=== PATIENT | male | born 1955 | race Caucasian/White ===

== ENCOUNTER 2017-02-13 05:27 | Inpatient (IN) | payer BC ==
[2017-02-06 12:27] LABS: BASOPHILS 0.5 %; BASOPHILS ABSOLUTE 0.02 10/3/uL (0.0-0.16); EOSINOPHILS 5.4 %; EOSINOPHILS ABSOLUTE 0.21 10/3/uL (0.0-0.53); HEMATOCRIT 43.9 % (40.0-51.0); HEMOGLOBIN 15.9 g/dL (13.6-17.8); LYMPHOCYTES 44.8 %; LYMPHOCYTES ABSOLUTE 1.73 10/3/uL (0.67-4.30); MEAN CORPUS HGB CONC 36.2 g/dL (32.0-36.0); MEAN CORPUSCULAR HEMOGLOB 33.3 pg (26.0-34.0); MEAN CORPUSCULAR VOLUME 91.8 fL (80-100); MEAN PLATELET VOLUME 9.1 fL (9.2-13.0); MONOCYTES 9.6 %; MONOCYTES ABSOLUTE 0.37 10/3/uL (0.21-1.20); NEUTROPHILS 39.7 %; NEUTROPHILS ABSOLUTE 1.53 10/3/uL (2.02-8.40); PLATELET COUNT 164 10/3/uL (150-400); RBC DISTRIBUTION WIDTH 13.7 % (12.0-16.0); RED CELL COUNT 4.78 10/6/uL (4.7-6.1); WHITE BLOOD CELLS 3.9 10/3/uL (4.5-10.5)
[2017-02-06 12:29] LABS: MANUAL DIFF NO %
[2017-02-06 12:32] LABS: PROTIME (NOT ORD) 12.9 SEC (12.0-14.5)
[2017-02-06 12:42] LABS: % IRON SAT 33 % (20-50); ALBUMIN 4.2 G/DL (3.5-5.0); BUN (BLOOD UREA NITROGEN) 11 MG/DL (6-23); CALCIUM, SERUM 9.5 MG/DL (8.5-10.4); CHLORIDE, SERUM 105 MMOL/L (96-112); CO2 (CARBON DIOXIDE) 27 MMOL/L (24-34); CREATININE 0.98 MG/DL (0.70-1.30); GFR AFRICAN AMERICAN 97 ML/MIN (>=60); GFR NON AFRICAN AMERICAN 84 ML/MIN (>=60); GLUCOSE, SERUM 96 MG/DL (60-99); IRON BINDING CAPACITY 357 MCG/DL (250-450); IRON, SERUM 118 MCG/DL (35-150); POTASSIUM, SERUM 4.6 MMOL/L (3.5-5.3); SGOT(AST) 32 U/L (5-40); SGPT(ALT) 64 U/L (5-65); SODIUM, SERUM 139 MMOL/L (135-148); TOTAL BILIRUBIN 0.8 MG/DL (0-1.2); TOTAL PROTEIN 7.6 G/DL (6.0-8.5)
[2017-02-06 12:44] LABS: A/G RATIO 1.2 (0.7-1.9); ALKALINE PHOSPHATASE 73 U/L (45-117); GLOBULIN 3.4 G/DL (2.5-4.1)
[2017-02-06 13:30] LABS: ASCORBIC ACID (UR NOT ORDER) NEG (NEG); BILIRUBIN, URINE NEGATIVE (NEG); KETONE, URINE NEGATIVE (NEG); LEUKOCYTE ESTERASE(NOT OR NEG (NEG); WBC (NOT ORDERED) (RFLEX) 2 (0-5)
--- NOTE | ~2017-02-13 | CN ---
Consultation Report [facility] [address] [place]. [address] NAME: CECILIA POZO : 59 STATUS : ADM IN [facility]#: [id number] AGE: 61 ADM/REG DATE : 02/13/17 MR#: [id number] REPORT SERV DATE: 02/14/17 DICTATED BY: JEZ CALLAWAY DATE: 02/14/17 REPORT STATUS : Draft TRANSCRIBED BY: MODL DATE: 02/14/17 CONSULTATION DATE OF CONSULTATION: 02/14/2017 REASON FOR CONSULT: Postoperative hyperglycemia. HISTORY OF PRESENT ILLNESS: The patient is a very pleasant 61-year-old male, who is status post coronary artery bypass grafting and aortic root replacement per cardiothoracic surgeon, Dr. Hair. He developed postoperative hyperglycemia and I am consulted for postoperative hyperglycemia. The patient denies any shortness of breath. He is complaining of postsurgical chest pain. He does not have any history of diabetes. PAST MEDICAL HISTORY: Known for history of hyperlipidemia, history of calcific coronary artery disease, enlargement of the aortic root, hypertension, cataract surgery, degenerative disk disease, left renal calculus, prostate cancer status post resection, enlarged ascending aorta, ascending aortic aneurysm of size 4.7 x 4.8. PAST SURGICAL HISTORY: Includes radical prostatectomy, previous hemorrhoidectomy, appendectomy as a child. Also had a cataract excision of right eye one week ago. ALLERGIES: INCLUDE SULFA, STATINS. HOME MEDICATIONS: Include aspirin 81 mg a day, loratadine 10 mg a day, metoprolol 50 p.o. b.i.d., and pravastatin 40 mg a day. FAMILY HISTORY: Significant for brother with hyperlipidemia; brother with hypertension; father with hypertension, hyperlipidemia, and myocardial infarction; mother with hypertension and diabetes. SOCIAL HISTORY: He never smoked. He drinks occasionally one glass of wine. No recreational drug use. REVIEW OF SYSTEMS: 14-point review of systems done and negative. PHYSICAL EXAMINATION: GENERAL: Well-nourished, well-developed male, not in acute distress, resting quietly. VITAL SIGNS: Blood pressure 140/52, heart rate 97, respirations 16, and oxygen saturation 96% on room air. HEENT: Head is atraumatic, normocephalic. Conjunctivae clear. Pupils are equal and reactive to light and accommodation. Extraocular muscles are intact. NECK: Supple. Trachea is midline. No supraclavicular or cervical lymphadenopathy. LUNGS: Diminished breath sounds bilaterally. Decreased respiratory effort. Consultation Report [facility]. [address] NAME: CECILIA POZO : 59 STATUS : ADM IN PAT#: [id number] AGE: 61 ADM/REG DATE : 02/13/17 MR#: [id number] REPORT SERV DATE: 02/14/17 DICTATED BY: JEZ CALLAWAY DATE: 02/14/17 REPORT STATUS : Draft TRANSCRIBED BY: MODL DATE: 02/14/17 CARDIOVASCULAR SYSTEM: Regular rate and rhythm. Point of maximal impulse not displaced. ABDOMEN: Soft, nontender, nondistended. Positive normoactive bowel sounds. EXTREMITIES: No clubbing, cyanosis, or edema. SKIN: Normal color and turgor. LABORATORY RESULTS: Blood sugar 117 and 116. He is currently on 4-5 units of regular insulin drip. Sodium 146, potassium 4.5, chloride 113, carbon dioxide 21, BUN 19, creatinine 1.08, blood sugar 119, magnesium 2.2. Hemoglobin A1c 5. White count 7.6, hemoglobin 8.9, hematocrit 24.4, platelet count 102. ASSESSMENT AND PLAN: 1. This is a very pleasant 61-year-old male with postoperative hyperglycemia. The patient does not have any evidence of diabetes. He was given steroids postsurgically and blood sugar is elevated. We are expecting his blood sugar to come back to the baseline within a couple of days. I am going to transition him from insulin drip to insulin NovoLog sliding scale level 2. We will give him 1 shot of Levemir of 15 units one dose and we will discontinue insulin drip one hour after Levemir given. 2. Hypertension. Controlled. MG/MODL Jez Callaway M.D. / [id number] CC: Bree Haq M.D.
--- NOTE | ~2017-02-13 | DS ---
Discharge Summary [facility] [address] [place]. [address] NAME: ECCILIA POZO : 59 STATUS : DIS IN PAT#: [id number] AGE: 61 ADM/REG DATE : 02/13/17 MR#: [id number] REPORT SERV DATE: 02/26/17 DICTATED BY: ANA HAIR DATE: 02/26/17 REPORT STATUS : Draft TRANSCRIBED BY: MODAurora DATE: 02/26/17 Data Collection from hospitalization DISCHARGE DIAGNOSES: 1. Dilated aortic root/ascending aorta. 2. Hyperlipidemia. 3. Hypertension. 4. Iron deficiency anemia. 5. Acute blood loss anemia. 6. Coronary artery disease. CONSULTATIONS: 1. Leslie Young M.D. 2. Vick Lyons MD. PROCEDURES PERFORMED: Valve sparing aortic root replacement with reimplantation of the coronaries using a Dacron graft (Valsalva 30 mm) and Svensson modification a Jose Angel procedure; Hemiarch and ascending aortic replacement with 30 mm Dacron graft (Gelweave) using modified hypothermic circulatory arrest and antegrade cerebral perfusion; coronary artery bypass grafting x4 with left internal mammary artery to the left anterior descending artery, reverse saphenous vein graft placed to the first obtuse marginal, reverse saphenous vein graft sequenced to the acute marginal branch and posterior lateral branch vessels; right axillary artery cannulation for cardiopulmonary bypass using 8 mm Dacron graft; endoscopic vein harvest of saphenous vein from the right thigh; and transesophageal echocardiography on 02/13/2017. PATHOLOGY: Aorta - adventitial hemorrhage consistent with clinical impression (no aortitis). MEDICATIONS: Aspirin 81 mg every morning, ferrous sulfate 300 mg twice a day, Cos Cob 5/325 one to two tablets every four hours as needed, Claritin 10 mg daily, Lopressor 50 mg twice a day, and Pravachol 40 mg at bedtime. CONDITION AT DISCHARGE: Stable. DISPOSITION: The patient was discharged home with diet and activities as instructed. He would follow up with Qasim Robins on 02/26/[address] Chester Garcia on 02/27/2017. He would follow up with Dr. Carl Baker on 02/25/2017 and Qasim Robins on 04/19/2017. HOSPITAL COURSE: This is a 61-year-old man who has a history of hypertension and hypercholesterolemia who has a history of PVCs. He had a stress test several years ago that was unremarkable. He recently underwent a calcium scoring that was elevated and underwent a cardiac catheterization, which demonstrated significant three-vessel coronary artery disease. Ventricular function was preserved with an ejection fraction greater than 50%. The patient had a dilated aortic root on CTA. Echocardiogram demonstrated dilated aortic root with diameter of the aortic root greater than 5 cm. He also had a dilated ascending aorta and moderate aortic valve insufficiency. Ventricular function was preserved. It was felt that the patient would need to undergo coronary artery bypass grafting and aortic root replacement. Treatment options were discussed and it was elected to proceed with surgical Discharge Summary [place] [id number] [facility] [place]. [address] NAME: CECILIA POZO : 59 STATUS : DIS IN [facility]#: [id number] AGE: 61 ADM/REG DATE : 02/13/17 MR#: [id number] REPORT SERV DATE: 02/26/17 DICTATED BY: ANA HAIR DATE: 02/26/17 REPORT STATUS : Draft TRANSCRIBED BY: FLORENTINO DATE: 02/26/17 intervention. He was admitted to the hospital at this time for further evaluation and treatment. Upon admission, he was taken to the operating room where he underwent the above-mentioned procedure. He tolerated this well, and there were no complications. Postoperatively, he was seen by Dr. Vick Lyons. Pressors were being weaned. He was in no acute distress. He was still sedated and intubated. On postop day #1, he has been extubated. Blood pressure was labile, it would decrease with movement. He was seen in consultation by Dr. Leslie Young regarding postoperative hyperglycemia. The patient does not have any evidence of diabetes. He had received steroids post surgically and his blood sugars were elevated. We expected his blood sugar to come down to the baseline within a couple of days. He was going to be transitioned from insulin drip to level 2 NovoLog sliding scale insulin. He was going to receive a shot of Levemir, and the insulin drip would be discontinued one hour after Levemir was given. Blood pressure was controlled. On 02/15/2017, his lungs were clear. Chest x-ray was also clear. His abdomen soft and nontender. ANNY hose were in place. He was transferred to the floor. Coreg was increased as tolerated. On 02/16/2017, his incisions looked okay. His extremities were warm. He had no edema. Discharge planning was performed. He had no shortness of breath or chest pain. Amiodarone was decreased. On 02/17/2017, his incisions looked okay. He was doing well postoperatively. He was ambulatory. Heart rate and blood pressure were controlled. H and H remained stable. Discharge instructions were given. Due to his improved and stable condition, he was discharged home with the above-stated instructions. Information collected by: Sigrid Moore I submit the above information as my discharge summary. TG/MODL Ana Hair M.D. / [id number] CC: Bree Haq M.D. Vimal Ramjee, MD
--- NOTE | ~2017-02-13 | OP ---
Record Of Operation [facility] [address] [place]. [address] NAME: CECILIA POZO : 59 STATUS : ADM IN PAT#: [id number] AGE: 61 ADM/REG DATE : 02/13/17 MR#: [id number] REPORT SERV DATE: 02/14/17 DICTATED BY: ANA HAIR DATE: 02/14/17 REPORT STATUS : Draft TRANSCRIBED BY: MODL DATE: 02/14/17 DATE OF PROCEDURE: 02/13/2017 PREOPERATIVE DIAGNOSES: 1. 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 2. Aortic valve insufficiency. 3. Coronary artery disease, left main coronary stenosis. 4. Hypertension. 5. Hypercholesterolemia. POSTOPERATIVE DIAGNOSES: 1. 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 2. Aortic valve insufficiency. 3. Coronary artery disease, left main coronary stenosis. 4. Hypertension. 5. Hypercholesterolemia. PROCEDURES PERFORMED: 1. Valve sparing aortic root replacement with reimplantation of the coronaries using a Dacron graft (Valsalva, 30 mm), and Svensson modification a Jose Angel procedure. 2. Hemiarch and ascending aortic replacement with a 30 mm Dacron graft (Gelweave) using modified hypothermic circulatory arrest and antegrade cerebral perfusion. 3. Coronary artery bypass grafting x4, left internal mammary artery placed to left anterior descending, reverse saphenous vein graft placed to the first obtuse marginal, reverse saphenous vein graft sequenced to the acute marginal branch and posterior lateral branch vessels. 4. Right axillary artery cannulation for cardiopulmonary bypass using an 8 mm Dacron graft. 5. Endoscopic vein harvest, saphenous vein from the right thigh. 6. Transesophageal echocardiography. SURGEON: Ana Hair M.D. ASSISTANTS: Dr. Lauri Schmidt, and Everton Keith. ANESTHESIA: General with Dr. Boone and Dr. Palacio. GREEN TIRE INSPECTOR: Chester Garcia M.D. INDICATIONS: This is a a 61-year-old gentleman with history of hypertension and hypercholesterolemia, who has a history of PVCs. Several years ago, he was evaluated by Dr. Garcia, and had a stress test that was unremarkable. The patient recently underwent a calcium scoring, that was elevated and underwent a cardiac catheterization with Dr. Garcia demonstrated significant three-vessel coronary artery disease. His ventricular function was preserved with an ejection fraction greater than 50%. He was noted to have a dilated aortic root on CTA. He had an echocardiogram that demonstrated a dilated aortic root with diameter Record Of Operation [facility] [address] [place]. [address] NAME: CECILIA POZO : 59 STATUS : ADM IN PAT#: [id number] AGE: 61 ADM/REG DATE : 02/13/17 MR#: [id number] REPORT SERV DATE: 02/14/17 DICTATED BY: ANA HAIR DATE: 02/14/17 REPORT STATUS : Draft TRANSCRIBED BY: MODL DATE: 02/14/17 of the aortic root greater than 5 cm. He also had a dilated ascending aorta and moderate aortic valve insufficiency. Ventricular function was preserved. We were asked to see the patient for possible treatment of coronary artery disease, and his aortic valve insufficiency with aortic root aneurysm. We talked with the patient about possible surgery including bypass and repair of the aortic root and ascending aorta. He underwent a CTA of the chest that confirmed dilation of the aortic root and ascending aorta. The descending thoracic aorta was of normal diameter. We discussed possible surgery with hemiarch replacement and modified hypothermic circulatory arrest. After a lengthy discussion of the operations indication and risks, he wished to proceed. FINDINGS AT OPERATION: 1. Cross-clamp time of 246 minutes, total pump time of 282 minutes. Circulatory arrest time of 16 minutes with core temperature of 27 degrees Celsius. 2. The LAD was a 2 mm heavily diseased vessel. A 3 mm PARKER was anastomosed to it with good runoff. 3. The obtuse marginal was 2 mm moderately diseased. A 4 mm RSVG was anastomosed to it with good runoff. 4. The acute marginal branch was 1.75 mm mildly diseased. A 4 mm RSVG was anastomosed in a [id number] fashion to it with good runoff. 5. The posterolateral branch vessel was 1.75 mm and mildly diseased. In the end, the same 4 mm RSVG was anastomosed to it with good runoff. 6. The vein quality was good and all grafts had good Doppler signal at the end of the case. 7. 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 The valve appeared without significant stenosis or calcification. The valve did appear to functioning well. I was concerned that the aneurysm of the sinuses was distorting valve during diastole causing aortic insufficiency. Coronary anatomy was relatively normal, although high in the sinuses secondary to the aneurysm formation. There was a large plaque above the takeoff of the right main coronary artery. 8. We performed Svensson modification of the Jose Angel procedure as a valve sparing root replacement. A 30 mm Gelweave Valsalva graft was trimmed to reconstruct the sinuses and yet preserve the coronary posts and anchor them to the Dacron graft. The size of the valve measured at surgery was 27 mm. 9. We did perform the distal hemiarch replacement and distal anastomosis under modified hypothermic circulatory arrest using antegrade cerebral perfusion. 10.DUNCAN at the end of the operation demonstrated good ventricular function. There was mild mitral insufficiency. There was trace to mild aortic insufficiency. Residual after repair. 11.The patient was coagulopathic with low platelet count. He was given FFP and platelets at the conclusion of the operation. PATHOLOGIC SPECIMENS: Include aortic root tissue and ascending aortic tissue. DESCRIPTION OF PROCEDURE: The patient was brought to the operating suite. General anesthesia was induced, airway was secured with an endotracheal tube. Lines were secured by Anesthesia, and a Murry catheter was placed. DUNCAN probe was placed by Anesthesia, and examination was carried out demonstrating the aortic insufficiency and mild mitral Record Of Operation [facility] [address] [place]. [address] NAME: CECILIA POZO : 59 STATUS : ADM IN [facility]#: [id number] AGE: 61 ADM/REG DATE : 02/13/17 MR#: [id number] REPORT SERV DATE: 02/14/17 DICTATED BY: ANA HAIR DATE: 02/14/17 REPORT STATUS : Draft TRANSCRIBED BY: FLORENTINO DATE: 02/14/17 insufficiency. Aneurysm of the aortic root was notable. The patient's chest, abdomen, groin, and legs were prepped with Hibiclens and ChloraPrep, and draped with Ioban sterile sheets. The saphenous vein was harvested from the right thigh using endoscopic technique. Briefly, the vein was cut directly down upon through a 2 cm incision placed at the medial aspect of the right knee. Then, using VasoView trocars, the vessel was dissected from the surrounding subcutaneous tissue and fat. The side branches were identified, ligated, and divided with the cautery. Once adequate length of vein had been dissected, a counter incision was made up in the groin where the vein was ligated, divided, and brought out through the knee incision. The knee incision was enlarged somewhat to obtain although slightly greater length [id number] for grafting. The vein quality was good. The leg wounds were made hemostatic and closed in layers with absorbable suture, and the skin was closed in subcuticular fashion. Next, we dissected out the right axillary artery. A 6 to 8 cm incision was made 1 cm inferior to the lateral third of the right clavicle. This was carried through subcutaneous tissue and chest wall musculature, which was divided in the course of their fibers. The subclavian vein and axillary vein were identified, and these were retracted inferiorly. This allowed us to see and dissected out the axillary artery. After adequate length of the axillary artery was dissected, this wound was packed temporarily with a gauze. Then, a midline sternal incision was made and the sternum was opened with a saw. The left hemithorax was elevated and the endothoracic fascia was incised. The side branches of the ALBERT were clipped and divided. Once the ALBERT was completely dissected, the patient was anticoagulated with heparin, and chest tube was placed in the left pleural cavity. The ALBERT was clipped and divided distally. There was good flow through the ALBERT, and its pedicle was infiltrated with papaverine. We then turned our attention back towards the right axillary artery dissection for cannulation. Weitlaner retractors were placed and allowed good exposure of the right axillary artery. Angled DeBakey vascular clamps were placed proximally and distally on the axillary artery. An 8 mm Dacron graft was then sewn in an end-to-side fashion to the axillary artery with a running suture of 6-0 Prolene. Following completion of the anastomosis, vascular clamps were removed and hemostasis was obtained. Vascular graft was then de-aired, and a connector was used to connect the vascular graft to the arterial line of the pump. This was secured to the chest wall. Testing demonstrated adequate flow and pressures. We then turned our attention back toward the midline incision. A Tien retractor was placed in the pericardium over from the innominate vein. The diaphragm was T'd and tacked to the side of the chest wall. Cannulation pursestring sutures were placed in the right atrium. Cannulation was carried out with a dual-stage venous cannula. When all was in readiness, the patient was placed on cardiopulmonary bypass. We then marked out the distal targets on the heart as described in the findings. We dissected out the ascending aorta, and also dissected out the origin of the innominate artery, cranial to the Record Of Operation [facility] [address] [place]. [address] NAME: CECILIA POZO : 59 STATUS : ADM IN PAT#: [id number] AGE: 61 ADM/REG DATE : 02/13/17 MR#: [id number] REPORT SERV DATE: 02/14/17 DICTATED BY: ANA HAIR DATE: 02/14/17 REPORT STATUS : Draft TRANSCRIBED BY: MODL DATE: 02/14/17 innominate vein. The ascending aorta was enlarged at about 4 to 4.5 cm at its mid point. Then, the aorta was crossclamped. Initial dose of cold group home crystalloid solution was administered in an antegrade fashion both in the aortic root and directly in the coronary ostia because of the aortic insufficiency. 500 mL were administered in the ascending aorta and the remaining 1500 mL were administered down each coronary artery directly after opening of the aorta. An LV vent had been placed to the right superior pulmonary vein and directed into the left ventricle. After opening the aorta and first cardioplegia arresting dose, cooling was begun on the pump to reach temperature for modified hypothermic circulatory arrest. During this time, the distal bypasses were performed. Heart support was placed. We then positioned the heart for the posterolateral branch graft. Arteriotomy was made. The vein graft was trimmed and anastomosed to it in an end-to-side fashion with a running suture of 7-0 Prolene. This vein graft was then measured back to the takeoff of the acute marginal vessel. Here another arteriotomy was made. The corresponding venotomy was made. The guna-im-wdve saphenous coronary anastomosis was constructed with 7-0 Prolene. This sequential graft was then measured to the proposed side of the ascending aortic graft where it was divided. We then positioned the heart for the obtuse marginal graft. Arteriotomy was made. The vein graft was then anastomosed to it with 7-0 Prolene. This vein graft was measured back to the left side ascending aorta where it was divided. We then positioned the heart for the LAD graft. Arteriotomy was made at the mid LAD. This was a lengthy arteriotomy through a stenotic plaque. The ALBERT was then brought out of the left chest through a notch in the pericardium over the pulmonary artery. The ALBERT was opened and anastomosed to the LAD with the running suture of 8-0 Prolene. The endothoracic fascia was tacked to the epicardium. Once the bypass were completed, the heart support was removed. We then turned our attention back toward the ascending aorta and aortic valve. The aortic valve was inspected at three leaflets. Coronary anatomy was normal. The sinuses of Valsalva were definitely dilated and aneurysmal with a height of the each coronary sinus being greater than 2 cm. The aortic valve itself did not appear to be sclerotic or calcified. The leaflet tissue was thin and very pliable. There was small fenestration in the aortic valve near the commissure between the non and left main coronary artery. I felt that we most likely could preserve the aortic valve and reconstruct the coronary sinus using a Dacron Gelweave graft. Having decided this, we excised each of the coronary sinuses to within 2 mm proximity to the annulus. Each of the commissural post post was suspended using a Tycron suture, that was pledgeted. Right and left main coronary artery were likewise excised with the coronary sinus tissue. The valve was then sized, a 27 mm valve was sized, and a 30 mm Gelweave Valsalva Dacron graft was selected. We then measured the height of each of the sinuses up to the top of the commissural post. Corresponding trimming of the Gelweave graft was then cut performed to reconstruct each of the sinuses with good graft material while preserving the commissural post of the valve. Once this had been accomplished, we had over an hour of cooling time and adequate core temperatures for performance of the distal anastomosis. We then turned our attention towards the distal anastomosis. The ascending aorta had been dissected out previously. Flows were reduced on the heart-lung bypass machine, and a Record Of Operation [address] [place]. [address] NAME: CECILIA POZO : 59 STATUS : ADM IN [facility]#: [id number] AGE: 61 ADM/REG DATE : 02/13/17 MR#: [id number] REPORT SERV DATE: 02/14/17 DICTATED BY: ANA HAIR DATE: 02/14/17 REPORT STATUS : Draft TRANSCRIBED BY: FLORENTINO DATE: 02/14/17 vascular clamp was placed across the origin of the innominate artery from the aortic arch. Flows were then resumed at a lower rate for antegrade cerebral perfusion. We then transected the ascending aorta at the origin of the innominate artery across the hemiarch into the descending thoracic aorta. The 30 mm Dacron graft material was then brought up to this site and was trimmed. It was then sewn in end-to-end fashion to the aortic hemiarch with a running suture of 4-0 Prolene. Once this was completed, the arch and grafts were de- aired. A clamp was placed on the graft material just proximal to the anastomosis. The vascular clamp on the innominate artery was removed and flow re-established to the body using cardiopulmonary bypass. General warming was then begun. Having performed the distal anastomosis, we turned our attention back toward the aortic root. The aortic sinuses were re-evaluated, and I felt valve preservation was reasonable in this gentleman. The artery was trimmed, the Valsalva graft was brought to the field. We then sewed the graft with proximally to the aortic root just at the beginning of the annulus of the aortic valve, each of the sinuses anastomosis were constructed with 5-0 Prolene at the top of the commissures. The Tycron sutures were placed in the commissure, surface suspensions were removed, and the commissure post sewn to the top of the Valsalva portion of the graft. We then tested this repair with saline into the open end of the graft. The valve was competent and the saline did not drop. We then performed the left main coronary anastomosis to the left coronary sinus. I cautery was used to make hole in Dacron material and the left main coronary button was trimmed and sewn to this site with a running suture of 6-0 Prolene. In a similar fashion, I cautery was used to make a hole in the Dacron graft for the right main coronary artery, and this coronary button was likewise trimmed. There was a large plaque of the anterior portion of the coronary button, and we went outside this plaque to sew it to the Dacron graft. Once the anastomoses were completed, we reinspected the inside of the graft, and found that the aortic valve was indeed appeared to be competent. Both right and left main coronary ostia were widely patent. Then, the graft was used for the aortic root reconstruction and the portion of the graft was used for the hemiarch constructed where reanastomosed in an end-to- end fashion with a running suture of 5-0 Prolene. Having the reconstructed ascending aortic and aortic root in place the, the proximal end of each of the vein grafts were then anastomosed to a small hole, it was made in the Dacron graft using I cautery. The anastomoses were constructed with 6-0 Prolene. The patient was placed in Trendelenburg. The ascending aortic graft material and heart were de-aired and the aortic cross-clamp was removed. We continued warming and the heart was allowed to rest on cardiopulmonary bypass. Anastomoses were inspected and made hemostatic. Doppler demonstrated good flow through all the grafts, and the proximal and distal anastomoses were all inspected and made hemostatic. The heart was cardioverted using 10 joules of energy in the internal paddles x1. The heart was initially paced in AV sequential fashion, but later on indicates the sinus rhythm was resumed and pacing was discontinued. Ventilations were begun. When the heart demonstrated good contractility, it was allowed to fill and eject. Once core temperature was above 36 degrees Celsius, the patient was gradually weaned from cardiopulmonary bypass. The venous Record Of [address] [place]. [address] NAME: CECILIA POZO : 59 STATUS : ADM IN [facility]#: [id number] AGE: 61 ADM/REG DATE : 02/13/17 MR#: [id number] REPORT SERV DATE: 02/14/17 DICTATED BY: ANA HAIR DATE: 02/14/17 REPORT STATUS : Draft TRANSCRIBED BY: MODL DATE: 02/14/17 cannula was removed, and these pursestring sutures were secured and later tied. DUNCAN examination demonstrated good functioning ventricle. There was mild mitral insufficiency. The aortic valve appeared to be fairly competent. There was a small trivial very mild jet of AI probably from this fenestration seen at the beginning of the operation. The patient continued do well. Protamine was administered by Anesthesia, and following a period of hemodynamic stability, the 8 mm Dacron graft in the axillary artery was ligated and divided with the thoracoscopic stapler and vascular load. The chest was irrigated copiously with sterile water and saline. Hemostasis was obtained. There was some bleeding around the proximal anastomoses. DDAVP was administered. Platelet count was low, and platelets were ordered from the blood bank along with FFP. Eventually without platelets and FFP, hemostasis was obtained with the patient's only. Doppler continued to demonstrate good flow down the grafts. Once hemostasis was assured, the chest was irrigated copiously with sterile water and saline. Pacing wires had been placed earlier, and the pericardium was draped over the anterior surface of the heart and tacked into position. Doppler demonstrated good flow through the grafts following protamine administration. Then, chest tubes were placed, sternum was reapproximated with eight sternal wires. The clavipectoral fascia and linea alba were closed with #1 STRATAFIX. The subcutaneous tissue was closed with the STRATAFIX, and skin was closed in a subcuticular fashion. The patient tolerated the procedure well. There were no complications. Sponge needle counts were correct. DISPOSITION: The patient was left intubated, sedated, and transported to the Intensive Care Unit in stable condition. CATY/FLORENTINO Ana Hair M.D. / [id number] CC: Bree Haq M.D. Andrew H Fowler, M.D.
[~2017-02-13 05:27] MED LIST: ASAB PO; CHLORPHEN4 MG PO; CLARIT10 PO; DENIES HOME MEDS; LOP50 PO; PRAVACHOL40 MG PO
[2017-02-13 16:11] LABS: TEG - ANGLE 60.6 DEG (53-72); TEG - COAGULATION INDEX -2.7 (-3 TO 3); TEG - MAXIMUM AMPLITUDE 48.9 MM (50-70); TEG - RATE 7.1 MIN (5.0-10.0)
[2017-02-13 16:12] LABS: TEG - LY30 4.3 % (0-8)
[2017-02-13 17:32] LABS: BE (BASE EXCESS) -8.5 MEQ/L (0 +/- 2.5); CARBOXYHEMOGLOBIN 0.3 % (0-3); HCO3 (ACTUAL BICARBONATE) 16.7 MEQ/L (23-27); HEMOBLOGIN CONTENT 13.1 G/DL (14-18); INSTRUMENT SERIAL # 11843; METHEMOGLOBIN 0.6 % (0-3); MODE SIMV; OPERATOR ID 13715; PCO2 (CO2 TENSION) 34 MMHG (35-45); PO2 (O2 TENSION) 371 MMHG (79-93); SAMPLE Arterial; TIDAL VOLUME 800 ML; pH 7.31 (7.37-7.43)
[2017-02-13 17:43] LABS: HEMATOCRIT 35.1 % (40.0-51.0); HEMOGLOBIN 12.5 g/dL (13.6-17.8); PLATELET COUNT 76 10/3/uL (150-400)
[2017-02-13 17:55] LABS: INTERNATIONAL NORMAL RATI 2.4 UNITS (-); PARTIAL THROMBO TIME 40.8 SEC (22.5-37.2)
[2017-02-13 17:56] LABS: CHLORIDE, SERUM 111 MMOL/L (96-112); CREATININE 1.22 MG/DL (0.70-1.30); GFR AFRICAN AMERICAN 75 ML/MIN (>=60); GFR NON AFRICAN AMERICAN 64 ML/MIN (>=60); POTASSIUM, SERUM 4.6 MMOL/L (3.5-5.3); SODIUM, SERUM 141 MMOL/L (135-148)
[2017-02-13 17:57] LABS: BUN (BLOOD UREA NITROGEN) 20 MG/DL (6-23); CO2 (CARBON DIOXIDE) 21 MMOL/L (24-34); GLUCOSE, SERUM 125 MG/DL (60-99)
[2017-02-13 21:43] LABS: BE (BASE EXCESS) -5.7 MEQ/L (0 +/- 2.5); CARBOXYHEMOGLOBIN 0.3 % (0-3); DEVICE NC; HCO3 (ACTUAL BICARBONATE) 18.5 MEQ/L (23-27); HEMOBLOGIN CONTENT 9.8 G/DL (14-18); INSTRUMENT SERIAL # 11843; METHEMOGLOBIN 0.6 % (0-3); O2 CONTENT 13.6 VOL% (18-24); OPERATOR ID 13744; PCO2 (CO2 TENSION) 32 MMHG (35-45); PO2 (O2 TENSION) 135 MMHG (79-93); SAMPLE Arterial; pH 7.39 (7.37-7.43)
[2017-02-13 23:30] LABS: HEMATOCRIT 24.8 % (40.0-51.0); HEMOGLOBIN 9.1 g/dL (13.6-17.8)
[2017-02-13 23:31] LABS: POTASSIUM, SERUM 4.1 MMOL/L (3.5-5.3)
[2017-02-13 23:32] LABS: INTERNATIONAL NORMAL RATI 1.6 UNITS (-); PARTIAL THROMBO TIME 33.2 SEC (22.5-37.2)
[2017-02-13 23:35] LABS: PROTIME (NOT ORD) 18.6 SEC (12.0-14.5)
[2017-02-14 03:21] LABS: BASOPHILS 0 %; EOSINOPHILS 0 %; HEMATOCRIT 24.4 % (40.0-51.0); HEMOGLOBIN 8.9 g/dL (13.6-17.8); IMMATURE GRANULOCYTES 0.1 %; IMMATURE GRANULOCYTES ABSOLUTE 0.01 10/3/uL (0.0-0.11); LYMPHOCYTES ABSOLUTE 0.68 10/3/uL (0.67-4.30); MANUAL DIFF NO %; MEAN CORPUS HGB CONC 36.5 g/dL (32.0-36.0); MEAN CORPUSCULAR HEMOGLOB 33.2 pg (26.0-34.0); MEAN PLATELET VOLUME 9.5 fL (9.2-13.0); MONOCYTES 4.7 %; MONOCYTES ABSOLUTE 0.36 10/3/uL (0.21-1.20); NEUTROPHILS 86.2 %; NEUTROPHILS ABSOLUTE 6.54 10/3/uL (2.02-8.40); PLATELET COUNT 102 10/3/uL (150-400); RBC DISTRIBUTION WIDTH 13.7 % (12.0-16.0); RED CELL COUNT 2.68 10/6/uL (4.7-6.1); WHITE BLOOD CELLS 7.6 10/3/uL (4.5-10.5)
[2017-02-14 03:32] LABS: BUN (BLOOD UREA NITROGEN) 19 MG/DL (6-23); CALCIUM, SERUM 8.6 MG/DL (8.5-10.4); CHLORIDE, SERUM 113 MMOL/L (96-112); CO2 (CARBON DIOXIDE) 21 MMOL/L (24-34); CREATININE 1.08 MG/DL (0.70-1.30); GFR AFRICAN AMERICAN 87 ML/MIN (>=60); GFR NON AFRICAN AMERICAN 75 ML/MIN (>=60); GLUCOSE, SERUM 119 MG/DL (60-99); POTASSIUM, SERUM 4.5 MMOL/L (3.5-5.3); SODIUM, SERUM 146 MMOL/L (135-148)
[2017-02-14 16:07] LABS: HEMATOCRIT 21.3 % (40.0-51.0)
[2017-02-14 16:11] LABS: POTASSIUM, SERUM 4.2 MMOL/L (3.5-5.3)
[2017-02-15 03:41] LABS: BASOPHILS 0.1 %; BASOPHILS ABSOLUTE 0.01 10/3/uL (0.0-0.16); EOSINOPHILS 0 %; HEMATOCRIT 21.9 % (40.0-51.0); IMMATURE GRANULOCYTES 0.2 %; IMMATURE GRANULOCYTES ABSOLUTE 0.03 10/3/uL (0.0-0.11); LYMPHOCYTES 11.7 %; MEAN CORPUS HGB CONC 36.5 g/dL (32.0-36.0); MEAN CORPUSCULAR HEMOGLOB 33.3 pg (26.0-34.0); MEAN CORPUSCULAR VOLUME 91.3 fL (80-100); MEAN PLATELET VOLUME 9.9 fL (9.2-13.0); MONOCYTES 8.3 %; MONOCYTES ABSOLUTE 1.14 10/3/uL (0.21-1.20); NEUTROPHILS 79.7 %; NEUTROPHILS ABSOLUTE 10.93 10/3/uL (2.02-8.40); PLATELET COUNT 101 10/3/uL (150-400)
[2017-02-15 03:42] LABS: MANUAL DIFF NO %; WHITE BLOOD CELLS 13.7 10/3/uL (4.5-10.5)
[2017-02-15 03:58] LABS: ALBUMIN 3.6 G/DL (3.5-5.0); CALCIUM, SERUM 8.5 MG/DL (8.5-10.4); CO2 (CARBON DIOXIDE) 24 MMOL/L (24-34); CREATININE 1.08 MG/DL (0.70-1.30); GFR AFRICAN AMERICAN 87 ML/MIN (>=60); GFR NON AFRICAN AMERICAN 75 ML/MIN (>=60); POTASSIUM, SERUM 4.8 MMOL/L (3.5-5.3); SGOT(AST) 104 U/L (5-40); SGPT(ALT) 48 U/L (5-65)
[2017-02-15 04:00] LABS: A/G RATIO 1.6 (0.7-1.9); ALKALINE PHOSPHATASE 34 U/L (45-117); BUN (BLOOD UREA NITROGEN) 23 MG/DL (6-23); CHLORIDE, SERUM 102 MMOL/L (96-112); GLOBULIN 2.3 G/DL (2.5-4.1); GLUCOSE, SERUM 163 MG/DL (60-99); SODIUM, SERUM 136 MMOL/L (135-148); TOTAL PROTEIN 5.9 G/DL (6.0-8.5)
[2017-02-16 05:16] LABS: CALCIUM, SERUM 8.6 MG/DL (8.5-10.4); CHLORIDE, SERUM 100 MMOL/L (96-112); CO2 (CARBON DIOXIDE) 26 MMOL/L (24-34); CREATININE 0.91 MG/DL (0.70-1.30); GFR AFRICAN AMERICAN 107 ML/MIN (>=60); GFR NON AFRICAN AMERICAN 92 ML/MIN (>=60); POTASSIUM, SERUM 4.1 MMOL/L (3.5-5.3); SODIUM, SERUM 134 MMOL/L (135-148)
[2017-02-16 05:18] LABS: BUN (BLOOD UREA NITROGEN) 18 MG/DL (6-23); GLUCOSE, SERUM 122 MG/DL (60-99)
[2017-02-16 06:32] LABS: BASOPHILS 0 %; EOSINOPHILS 0.1 %; EOSINOPHILS ABSOLUTE 0.01 10/3/uL (0.0-0.53); HEMATOCRIT 18.8 % (40.0-51.0); IMMATURE GRANULOCYTES 0.2 %; IMMATURE GRANULOCYTES ABSOLUTE 0.02 10/3/uL (0.0-0.11); LYMPHOCYTES 20.4 %; LYMPHOCYTES ABSOLUTE 1.84 10/3/uL (0.67-4.30); MEAN CORPUS HGB CONC 37.2 g/dL (32.0-36.0); MEAN CORPUSCULAR HEMOGLOB 33.8 pg (26.0-34.0); MEAN CORPUSCULAR VOLUME 90.8 fL (80-100); MEAN PLATELET VOLUME 10.3 fL (9.2-13.0); MONOCYTES 9.2 %; MONOCYTES ABSOLUTE 0.83 10/3/uL (0.21-1.20); NEUTROPHILS 70.1 %; NEUTROPHILS ABSOLUTE 6.34 10/3/uL (2.02-8.40); PLATELET COUNT 74 10/3/uL (150-400); RBC DISTRIBUTION WIDTH 13.7 % (12.0-16.0); RED CELL COUNT 2.07 10/6/uL (4.7-6.1)
[2017-02-16 06:33] LABS: MANUAL DIFF NO %; PLATELET ESTIMATE DEC (ADEQUATE); RBC MORPHOLOGY NORM (NORMAL)
[2017-02-16 08:53] LABS: HEMATOCRIT 18.8 % (40.0-51.0); HEMOGLOBIN 6.9 g/dL (13.6-17.8)
[2017-02-16 15:49] LABS: HEMATOCRIT 19.6 % (40.0-51.0); HEMOGLOBIN 7.2 g/dL (13.6-17.8)
[2017-02-17 06:10] LABS: BASOPHILS 0 %; EOSINOPHILS 1.5 %; EOSINOPHILS ABSOLUTE 0.11 10/3/uL (0.0-0.53); IMMATURE GRANULOCYTES 0.5 %; IMMATURE GRANULOCYTES ABSOLUTE 0.04 10/3/uL (0.0-0.11); LYMPHOCYTES 22.3 %; LYMPHOCYTES ABSOLUTE 1.69 10/3/uL (0.67-4.30); MEAN CORPUS HGB CONC 36.1 g/dL (32.0-36.0); MEAN CORPUSCULAR VOLUME 91.5 fL (80-100); MONOCYTES 9.2 %; NEUTROPHILS 66.5 %; NEUTROPHILS ABSOLUTE 5.04 10/3/uL (2.02-8.40); RBC DISTRIBUTION WIDTH 13.3 % (12.0-16.0); RED CELL COUNT 2.12 10/6/uL (4.7-6.1); WHITE BLOOD CELLS 7.6 10/3/uL (4.5-10.5)
[2017-02-17 06:12] LABS: HEMATOCRIT 19.4 % (40.0-51.0); MANUAL DIFF NO %; PLATELET COUNT 105 10/3/uL (150-400)
[2017-02-17 06:20] LABS: CALCIUM, SERUM 8.4 MG/DL (8.5-10.4); CHLORIDE, SERUM 102 MMOL/L (96-112); CO2 (CARBON DIOXIDE) 25 MMOL/L (24-34); CREATININE 0.83 MG/DL (0.70-1.30); GFR AFRICAN AMERICAN 112 ML/MIN (>=60); GFR NON AFRICAN AMERICAN 96 ML/MIN (>=60); GLUCOSE, SERUM 105 MG/DL (60-99); POTASSIUM, SERUM 3.7 MMOL/L (3.5-5.3); SODIUM, SERUM 134 MMOL/L (135-148)
[2017-02-17 06:27] LABS: BUN (BLOOD UREA NITROGEN) 14 MG/DL (6-23)
[2017-02-17] MEDS ORDERED: NORCO1 TA1 PO (14:08)
[2017-02-17] MEDS ORDERED: FESO4 PO (14:08)
== END 2017-02-17 15:20 | disposition home or self-care (01) | DRG 220 ==
LOC: SDC/OF 05:27 → CVICU 13:43 → 5NO 02-15 12:26
PROVIDERS: Nurse Practitioner Family; Thoracic Surgery (Cardiothoracic Vascular Surgery)
PROC: 06BP0ZZ Excision of Right Saphenous Vein, Open Approach (ICD-10-PCS; 2017-02-13)
PROC: 02Q Heart and Great Vessels, Repair (ICD-10-PCS; 2017-02-13)
PROC: 5A1221Z Performance of Cardiac Output, Continuous (ICD-10-PCS; 2017-02-13)
PROC: B246ZZ4 Ultrasonography of Right and Left Heart, Transesophageal (ICD-10-PCS; 2017-02-13)
PROC: 30233R1 Transfusion of Nonautologous Platelets into Peripheral Vein, Percutaneous Approach (ICD-10-PCS; 2017-02-13)
PROC: 30233K1 Transfusion of Nonautologous Frozen Plasma into Peripheral Vein, Percutaneous Approach (ICD-10-PCS; 2017-02-13)
PROC: 021209W Bypass Coronary Artery, Three Arteries from Aorta with Autologous Venous Tissue, Open Approach (ICD-10-PCS; principal; 2017-02-13 08:00)
PROC: 02RF0KZ Replacement of Aortic Valve with Nonautologous Tissue Substitute, Open Approach (ICD-10-PCS; 2017-02-13 08:00)
PROC: 0210099 Bypass Coronary Artery, One Artery from Left Internal Mammary with Autologous Venous Tissue, Open Approach (ICD-10-PCS; 2017-02-13 08:00)
DX: I25.10 Atherosclerotic heart disease of native coronary artery without angina pectoris (principal); D62 Acute posthemorrhagic anemia; D69.6 Thrombocytopenia, unspecified; I71.2 Thoracic aortic aneurysm, without rupture; I10 Essential (primary) hypertension; E78.00 Pure hypercholesterolemia, unspecified; Z82.49 Family history of ischemic heart disease and other diseases of the circulatory system; Z83.3 Family history of diabetes mellitus; Z79.82 Long term (current) use of aspirin; Z79.899 Other long term (current) drug therapy; I35.1 Nonrheumatic aortic (valve) insufficiency; R73.9 Hyperglycemia, unspecified; E78.5 Hyperlipidemia, unspecified; Z87.442 Personal history of urinary calculi; Z85.46 Personal history of malignant neoplasm of prostate; Z90.49 Acquired absence of other specified parts of digestive tract; Z98.890 Other specified postprocedural states; Z88.2 Allergy status to sulfonamides; Z88.0 Allergy status to penicillin; E66.9 Obesity, unspecified
CPT/HCPCS: 36415; 71010; 71020; 80048; 80053; 81001; 82310; 82330; 82803; 82805; 82947; 82962; 83036; 83540; 83550; 83735; 84132; 84295; 85014; 85018; 85025; 85049; 85347; 85384; 85390; 85576; 85610; 85730; 86850; 86900; 86901; 86920; 87641; 88305; 93005; 93312; 93320; 93325; 94002; 94640; 94660; 94770; A9270-GY; C1751; C1768; C1769; J0690; J1644; J2150; J2250; J2370; J2440; J2597; J2720; J2795; J2930; J3010; J3475; J3480; P9035; P9045; P9047; P9059